=== PATIENT | female | born 1940 | race Caucasian/White ===

== ENCOUNTER 2017-06-21 07:59 | Emergency (ER) | payer OTHER ==
[~2017-06-21] VITALS: Ht 162.6 cm; Wt 77.0 kg
[~2017-06-21 07:59] MED LIST: 1-ME1LIQ PO; ALPR.25 PO; HYDR12.56 PO; NAPR550 PO
[2017-06-21 08:03] VITALS: BP 161/71; PULSE 79; RESP 18; TEMP 97.9; O2SAT 98
[2017-06-21] MEDS ORDERED: MELO15TA20 PO (08:13)
[2017-06-21] MEDS ORDERED: HYDR12.57 PO (08:13)
[2017-06-21] MEDS ORDERED: AMLO5TAB2 PO (08:13)
[2017-06-21] MEDS ORDERED: POLY10O LEFT EYE (08:18)
--- NOTE | 2017-06-21 08:18 | PD ---
HPI Chief Complaint: Eye Problems/Injury Time Seen by Provider: 08:14 Travel History International Travel<30 days: No Contact w/Intl Traveler<30days: No Traveled to known affect area: No History of Present Illness HPI Patient presents with complaints of left eye discomfort since 5 AM this morning. States she awoke and rubbed her left eye and felt discomfort. Denies any visual changes. Unsure of any trauma to the eye while she slept. No sick contacts. Denies matting. Denies any exposure to Sand wood or metal. PFSH Past Medical History Diminished Hearing: Yes ([place]) GERD: Yes Hiatal Hernia: Yes Hypertension: Yes Immunizations Current: No ?: Not Menopausal: Yes Past Surgical History Hysterectomy: Yes (1980s) Social History Alcohol Use: No Tobacco Use: No Substance Use: No Allergies-Medications (Allergen,Severity, Reaction): Coded Allergies: benazepril (Unverified Allergy, Severe, cough, 06/21/17) captopril (Unverified Allergy, Severe, cough, 06/21/17) enalaprilat (Unverified Allergy, Severe, cough, 06/21/17) fosinopril (Unverified Allergy, Severe, cough, 06/21/17) lisinopril (Unverified Allergy, Severe, cough, 06/21/17) quinapril (Unverified Allergy, Severe, cough, 06/21/17) Reported Meds & Prescriptions Reported Meds & Active Scripts Active Reported Meloxicam 15 Mg Tab 15 Mg PO DAILY Amlodipine (Amlodipine Besylate) 5 Mg Tab 5 Mg PO DAILY Hydrochlorothiazide 12.5 Mg Cap 12.5 Mg PO DAILY Review of Systems General / Constitutional: No: Fever Eyes: Positive: Drainage, Redness, Pain, Tearing, No: Visual changes HENT: No: Headaches Cardiovascular: No: Chest Pain or Discomfort Respiratory: No: Shortness of Breath Gastrointestinal: No: Abdominal Pain Genitourinary: No: Dysuria Musculoskeletal: No: Pain Skin: No Rash Neurologic: No: Weakness Psychiatric: No: Depression Endocrine: No: Polydipsia Hematologic/Lymphatic: No: Easy Bruising Physical Exam Narrative GENERAL: Well-nourished, well-developed patient. SKIN: Focused skin assessment warm/dry. HEAD: Normocephalic. EYES: Left eye conjunctiva is erythematous with drainage, no matting noted, pupils are equal round reactive light and accommodation NECK: Supple, trachea midline. No JVD or lymphadenopathy. CARDIOVASCULAR: Regular rate and rhythm without murmurs, gallops, or rubs. RESPIRATORY: Breath sounds equal bilaterally. No accessory muscle use. GASTROINTESTINAL: Abdomen soft, non-tender, nondistended. MUSCULOSKELETAL: No cyanosis, or edema. BACK: Nontender without obvious deformity. No CVA tenderness. Data Data Last Documented VS Vital Signs Date Time Temp Pulse Resp B/P (MAP) Pulse Ox O2 Delivery O2 Flow Rate FiO2 06/21/17 08:03 97.9 79 18 161/71 (101) 98 MDM Medical Decision Making Medical Screen Exam Complete: Yes Emergency Medical Condition: Yes Differential Diagnosis Conjunctivitis, corneal abrasion, uveitis Narrative Course Assessment and plan discussed with patient at bedside Diagnosis Primary Impression: Conjunctivitis, left eye Qualified Codes: H10.32 - Unspecified acute conjunctivitis, left eye Additional Instructions: Encouraged rest and fluids. Patient has pain medication at home. Encouraged to follow-up with PCP/ophthalmology. Return to emergency with the onset of new symptoms. Med/Other Pt SpecificInfo: Prescription(s) given Scripts Polymyxin B-Trimethoprim Opth Drops (Polytrim Opth Drops) 10,000-0.1 Unit/Ml-% Soln 1 DROP LEFT EYE Q4HR for Mgmt Bacterial Infection, #1 BOTTLE 0 Refills Prov: Malcolm Medina MD 06/21/17 Disposition: 01 DISCHARGE HOME Condition: Good Malcolm Medina MD Jun 21, 2017 08:18
== END 2017-06-21 08:28 | disposition home or self-care (01) ==
LOC: PHED 07:59
DX: H10.9 Unspecified conjunctivitis (principal); K21.9 Gastro-esophageal reflux disease without esophagitis; I10 Essential (primary) hypertension; Z79.899 Other long term (current) drug therapy; Z88.8 Allergy status to other drugs, medicaments and biological substances
CPT/HCPCS: 99283